=== PATIENT | female | born 1980 | race African-American/Black ===

== ENCOUNTER 2016-10-04 16:56 | Inpatient (IN) | payer OTHER ==
[2016-10-04 17:37] VITALS: BMI 20.9
[2016-10-04] MEDS ORDERED: SODIUM CHLORIDE 1,000 ML IV STA (17:57)
--- NOTE | 2016-10-04 17:58 | PDOC ---
[id number] Illness Timing/Duration: other (this am) Severity: severe Associated Symptoms: reports: weakness. denies: chest pain, cough, fever/chills , headaches, nausea/vomiting, shortness of breath <Davis Fuentes - Last Filed: 10/05/16 09:35> <Ann Marie Red - Last Filed: 10/05/16 13:47> <Viktoria Cash - Last Filed: 10/05/16 21:04> - General Chief Complaint: Weakness Stated Complaint: WEAKNESS Time Seen by Provider: 10/04/16 17:40 Past History - Past Medical History Other medical history: slurred speech episodes. - Reproductive History (#): 5 Para: 2 Therapeutic (s) & number: Yes (2 ABORTIONS) - Immunization History Td Vaccination: No Immunization Up to Date: Yes - Psycho/Social/Smoking Cessation Hx Anxiety: No Suicidal Ideation: No Smoking Status: Yes Smoking History: Never smoked Years of Tobacco Use: 15 Have you smoked in the past 12 months: No Number of Cigarettes Smoked Daily: 7 Cigars Per Day: 0 Information on smoking cessation initiated: No Hx Alcohol Use: No Drug/Substance Use Hx: No Substance Use Type: None <Davis Fuentes - Last Filed: 10/05/16 09:35> <Ann Marie Red - Last Filed: 10/05/16 13:47> <Viktoria Cash - Last Filed: 10/05/16 21:04> - Past Medical History Allergies/Adverse Reactions: Allergies Allergy/AdvReac Type Severity Reaction Status Date / Time No Known Allergies Allergy Verified 10/04/16 17:37 Home Medications: Ambulatory Orders NK [No Known Home Medication] 08/17/14 Review of Systems - Review of Systems Constitutional: Yes: Weakness. No: Chills, Fever HEENTM: No: Blurred Vision Respiratory: No: Cough, Shortness of Breath Cardiac (ROS): No: Chest Pain ABD/GI: No: Constipated, Diarrhea, Nausea, Vomiting, Abdominal cramping : No: Dysuria Neurological: No: Headache, Dizziness <Davis Fuentes Last Filed: 10/05/16 09:35> *Physical Exam - Vital Signs Last Vital Signs Temp Pulse Resp BP Pulse Ox 98.5 F 67 18 140/90 100 10/04/16 16:56 10/04/16 16:56 10/04/16 16:56 10/04/16 16:56 10/04/16 16:56 - Physical Exam General Appearance: Yes: Appropriately Dressed, Other (pt appears lethargic). No: Apparent Distress HEENT: positive: JAMES, Normal Voice. negative: Scleral Icterus (R), Scleral Icterus (L) Neck: positive: Supple. negative: Lymphadenopathy (R), Lymphadenopathy (L) Respiratory/Chest: positive: Lungs Clear, Normal Breath Sounds. negative: Respiratory Distress Cardiovascular: positive: Regular Rate, S1, S2 Gastrointestinal/Abdominal: positive: Soft. negative: Tender Integumentary: positive: Dry, Warm Neurologic: positive: Disoriented. negative: Facial Droop <Davis Fuentes - Last Filed: 10/05/16 09:35> - Vital Signs Last Vital Signs Temp Pulse Resp BP Pulse Ox 98.7 F 90 18 125/84 100 10/05/16 10:25 10/05/16 10:25 10/05/16 10:25 10/05/16 10:25 10/05/16 10:25 <Ann Marie Red - Last Filed: 10/05/16 13:47> - Vital Signs Last Vital Signs Temp Pulse Resp BP Pulse Ox 98.2 F 84 18 127/85 100 10/05/16 18:15 10/05/16 18:15 10/05/16 18:15 10/05/16 18:15 10/05/16 18:15 <Viktoria Cash - Last Filed: 10/05/16 21:04> ED Treatment Course - LABORATORY CBC & Chemistry Diagram: 10/04/16 19:05 10/04/16 19:06 <Davis Fuentes - Last Filed: 10/05/16 09:35> - LABORATORY CBC & Chemistry Diagram: 10/04/16 19:05 10/04/16 19:06 - ADDITIONAL ORDERS Additional order review: 10/04/16 19:05 RBC 5.58 H D MCV 63.1 L MCHC 31.0 L RDW 19.6 H MPV 8.7 D Neutrophils % 80.2 Lymphocytes % 14.3 D Monocytes % 3.9 Eosinophils % 0.2 Basophils % 1.4 D - Medications Given in the ED: ED Medications Discontinued Medications Generic Name Dose Route Start Last Admin Trade Name Freq PRN Reason Stop Dose Admin Sodium Chloride 1,000 mls @ 1,000 mls/hr 10/04/16 17:57 10/04/16 18:14 Normal Saline - IV 10/04/16 18:56 1,000 mls/hr ASDIR STA Administration <Ann Marie Red - Last Filed: 10/05/16 13:47> - LABORATORY CBC & Chemistry Diagram: 10/04/16 19:05 10/04/16 19:06 - ADDITIONAL ORDERS Additional order review: 10/04/16 19:05 RBC 5.58 H D MCV 63.1 L MCHC 31.0 L RDW 19.6 H MPV 8.7 D Neutrophils % 80.2 Lymphocytes % 14.3 D Monocytes % 3.9 Eosinophils % 0.2 Basophils % 1.4 D - Medications Given in the ED: ED Medications Discontinued Medications Generic Name Dose Route Start Last Admin Trade Name Freq PRN Reason Stop Dose Admin Sodium Chloride 1,000 mls @ 1,000 mls/hr 10/04/16 17:57 10/04/16 18:14 Normal Saline - IV 10/04/16 18:56 1,000 mls/hr ASDIR STA Administration Sodium Chloride 1,000 mls @ 250 mls/hr 10/05/16 13:15 10/05/16 13:17 Normal Saline - IV 10/05/16 17:14 250 mls/hr ASDIR ONE Administration <Viktoria Cash - Last Filed: 10/05/16 21:04> Medical Decision Making - Medical Decision Making 10/04/16 17:58 36-year-old female, unclear history at this time, presenting with altered mental status. Patient brought in by mother and son after patient started complaining of weakness today and has since been mostly lethargic and bed bound all day. Patient complaining of generalize weakness since this am, denies headache, dizziness, focal weakness, slurred speech, visual changes, n/v, chest pain, shortness of breath, abdominal pain, change in bowel movements, dysuria, f /c. As per mother, patient presented similarly 5 years ago at [facility] and was admitted to possibly stepdown unit "and send to rehab" per mother. Patient denies any psych history or substance abuse to me now but as per records, patient had multiple encounters in 2012 with psychiatrist at [facility] [place] [facility] See exam AMS Suspect possibly substance abuse/ingestion, less likely CVA, cardiac or infectious Pt lethargic in ED but stable w/ RANDOLPH Oriented x 2 (place/person) Non-focal in ED but unable to follow some commands Rest of exam unremarkable otherwise Pt placed on monitor -ekg -labs including utox -IVF -admission anticipated <Davis Fuentes - Last Filed: 10/05/16 09:35> *DC/Admit/Observation/Transfer <Davis Fuentes - Last Filed: 10/05/16 09:35> - Discharge Dispostion Admit: Yes <Ann Marie Red - Last Filed: 10/05/16 13:47> - Attestations Physician Attestion: I reviewed the case with the mid-level practitioner and agree with the mid- level practitioner's assessment, diagnosis and disposition. <Viktoria Cash - Last Filed: 10/05/16 21:04> Diagnosis at time of Disposition: Dizziness, Ataxia - Referrals
[2016-10-04 19:28] LABS: BASOPHIL 1.4 % (0-2.0); EOSINOPHIL 0.2 % (0-4.5); MEAN CELL VOLUME 63.1 fl (80-96); MEAN PLT VOLUME 8.7 fl (7.5-11.1); NEUTROPHILS 80.2 % (42.8-82.8); PLATELET COUNT 496 K/MM3 (134-434); RDW 19.6 % (11.6-15.6); WHITE BLOOD COUNT 6.4 K/mm3 (4.0-10.0)
[2016-10-04 19:32] LABS: MCH 19.6 pg (25.7-33.7)
[2016-10-04 20:01] LABS: ALBUMIN 4.3 g/dl (3.4-5.0); ANION GAP 10 (8-16); BILIRUBIN,TOTAL 0.2 mg/dL (0.2-1.0); CALCIUM 9.3 mg/dL (8.5-10.1); CO2 26 mmol/L (21-32); CREATININE 0.7 mg/dL (0.55-1.02); GLUCOSE,RANDOM 90 mg/dL (74-106); SGOT/AST 18 U/L (15-37); SGPT/ALT 18 U/L (12-78); TOT PROT 8.8 g/dl (6.4-8.2)
[2016-10-04 20:03] LABS: ALK PHOS 67 U/L (45-117); TROPONIN I < 0.02 ng/ml (0.00-0.05)
[2016-10-04 20:21] LABS: HIV 1 & 2 AB NEGATIVE; HIV 1 AGp24 NEGATIVE
[2016-10-04 20:30] LABS: PLATELET ESTIMATE SLT INCREASED (NORMAL)
[2016-10-04 22:34] LABS: URINE APPEARANCE CLEAR; URINE BILIRUBIN NEGATIVE (NEGATIVE); URINE BLOOD NEGATIVE (NEGATIVE); URINE COLOR STRAW; URINE GLUCOSE (UA) NEGATIVE (NEGATIVE); URINE KETONE NEGATIVE (NEGATIVE); URINE LEUK ESTERASE NEGATIVE (NEGATIVE); URINE NITRITE NEGATIVE (NEGATIVE); URINE PROTEIN NEGATIVE (NEGATIVE); URINE UROBILINOGEN NEGATIVE E.U./dl (0.2-1.0)
[2016-10-04 22:41] LABS: URINE MARIJUANA THC NEGATIVE ng/ml (CUTOFF=50)
--- NOTE | 2016-10-05 08:35 | PDOC ---
ED Treatment Course - LABORATORY CBC & Chemistry Diagram: 10/04/16 19:05 10/04/16 19:06 - ADDITIONAL ORDERS Additional order review: Laboratory Results 10/04/16 10/04/16 18:13 17:10 Urine Color Straw Urine Appearance Clear Urine pH 6.0 Ur Specific [place] 1.012 Urine Protein Negative Urine Glucose (UA) Negative Urine Ketones Negative Urine Blood Negative Urine Nitrite Negative Urine Bilirubin Negative Urine Urobilinogen Negative Ur Leukocyte Esterase Negative Urine HCG, Qual Negative Opiates Screen Negative Methadone Screen Negative Barbiturate Screen Negative Phencyclidine Screen Negative Ur Amphetamines Screen Negative MDMA (Ecstasy) Screen Negative Benzodiazepines Screen Negative Cocaine Screen Positive U Marijuana (THC) Screen Negative 10/04/16 19:05 RBC 5.58 H D MCV 63.1 L MCHC 31.0 L RDW 19.6 H MPV 8.7 D Neutrophils % 80.2 Lymphocytes % 14.3 D Monocytes % 3.9 Eosinophils % 0.2 Basophils % 1.4 D - Medications Given in the ED: ED Medications Discontinued Medications Generic Name Dose Route Start Last Admin Trade Name Freq PRN Reason Stop Dose Admin Sodium Chloride 1,000 mls @ 1,000 mls/hr 10/04/16 17:57 10/04/16 18:14 Normal Saline - IV 10/04/16 18:56 1,000 mls/hr ASDIR STA Administration Progress Note - Progress Note Progress Note: I have received report from LITA Wilson regarding this patient. Pt's initial chief complaint: AMS Pt's work up completed prior to sign out: labs, Head CT, EKG, drug tox Pt treatment given from prior staff: IV fluids Pt plan to be completed: none Dispo: Awaiting reassess and discharge Medical Decision Making - Medical Decision Making A/P: 36 y/o female BIB mother and son for AMS. The patient had a complete work up and was + for cocaine. All other labs and imaging studies were normal. The patient does not want her family to know anything and refuses to answer questions about her cocaine use. She is sleeping in the ER and only responds to painful stimuli. Pt was denied admission to hospitalist and detox will not take cocaine detox. Awaiting an improvement in condition and discharge. Reassessed the patient and attempted to get her to walk. She has to walk with assistance and has ataxia. She can answer my questions and denies everything except cocaine use, which she states was 2 days ago. She is complaining only of dizziness and has slowed speech. Suspect possible hydrocephalus? Will admit for full neuro work up. Called Dr. Garcia, cost control analyst for Dr. Patel. She informs me that Dr. Alexander is admitting for her. I microblogged Dr. Alexander and he accepted the patient to obs and instructed me to put in consult for Dr. Barrientos. *DC/Admit/Observation/Transfer Diagnosis at time of Disposition: Dizziness, Ataxia - Referrals Referrals: Brennan Patel MD [Primary Care Provider] -
[2016-10-05] MEDS ORDERED: SODIUM CHLORIDE 1,000 ML IV ONE (13:15)
--- NOTE | 2016-10-05 14:40 | HP ---
[id number] a 36-year-old woman who was brought in to the ER by family yesterday because of lethargy. She had been complaining of feeling weak. Work-up , including head CT, was unremarkable except for urine drug screen that was positive for cocaine. She is currently very sleepy. She is slow to answer questions. She complains of feeling dizzy and weak. She denies pain, fever, chills, falls, headache, abdominal pain, nausea, cough, shortness of breath, chest pain, diarrhea, constipation, weight change, dysuria, hematuria, leg edema. She denies drug use, but earlier admitted to using cocaine 2 days ago. PAST MEDICAL HISTORY: Denies PAST SURGICAL HISTORY: Denies Allergies No Known Allergies Allergy (Verified 10/04/16 17:37) HOME MEDICATIONS 3 Medication Instructions Recorded NK [No Known Home Medication] 08/17/14 Social History: Smokin cigarettes/day Alcohol: Denies Drugs: Cocaine Recent Travel: No Family History: Non-contributory REVIEW OF SYSTEMS CONSTITUTIONAL: Present: generalized weakness. Absent: fever, chills, diaphoresis, malaise, loss of appetite, weight change HEENT: Absent: rhinorrhea, nasal congestion, throat pain, throat swelling, difficulty swallowing, mouth swelling, ear pain, eye pain, visual changes CARDIOVASCULAR: Present: lightheadedness. Absent: chest pain, syncope, palpitations, peripheral edema RESPIRATORY: Absent: cough, shortness of breath, dyspnea with exertion, orthopnea, wheezing, stridor, hemoptysis GASTROINTESTINAL: Absent: abdominal pain, abdominal distension, nausea, vomiting , diarrhea, constipation, melena, hematochezia GENITOURINARY: Absent: dysuria, frequency, urgency, hesitancy, hematuria, flank pain MUSCULOSKELETAL: Absent: myalgia, arthralgia, joint swelling, back pain, neck pain SKIN: Absent: rash, itching, pallor HEMATOLOGIC/IMMUNOLOGIC: Absent: easy bleeding, easy bruising, lymphadenopathy, frequent infections ENDOCRINE: Absent: unexplained weight gain, unexplained weight loss, heat intolerance, cold intolerance NEUROLOGIC: Present: dizziness, unsteady gait. Absent: headache, focal weakness , paresthesias, seizure, bladder or bowel incontinence PSYCHIATRIC: Absent: anxiety, depression, suicidal or homicidal ideation, hallucinations. PHYSICAL EXAMINATION Vital Signs Period Temp Pulse Resp BP Sys/Montiel Pulse Ox Last 24 Hr 98.5 F-98.7 F 62-90 18-18 125-140/82-90 98-100 GENERAL: Sleepy, arousable, in no acute distress. HEAD: Normal with no signs of trauma. EYES: Pupils equal, round and reactive to light, extraocular movements intact, sclerae anicteric, conjunctivae clear. EARS, NOSE, THROAT: Ears normal, nares patent, oropharynx clear without exudates. Moist mucous membranes. NECK: Normal range of motion, supple without lymphadenopathy, JVD, or masses. LUNGS: Breath sounds equal, clear to auscultation bilaterally. No wheezes, and no crackles. No accessory muscle use. HEART: Regular rate and rhythm, normal S1 and S2 without murmur, rub or gallop. ABDOMEN: Soft, nontender, not distended, normoactive bowel sounds, no guarding, no rebound, no masses. No hepatomegaly or splenomegaly. MUSCULOSKELETAL: Normal range of motion at all joints. No bony deformities or tenderness. No CVA tenderness. UPPER EXTREMITIES: 2+ pulses, warm, well-perfused. No cyanosis. No clubbing. Cap refill <2 seconds. No peripheral edema. LOWER EXTREMITIES: 2+ pulses, warm, well-perfused. No calf tenderness. No peripheral edema. NEUROLOGICAL: Cranial nerves II-XII intact. Speech slow but clear. Gait not observed. DTRs 1+. Strength 4/5 in all extremities. PSYCHIATRIC: Cooperative. Good eye contact. Appropriate mood and affect. SKIN: Warm, dry, normal turgor, no rashes or lesions noted. Laboratory Tests 10/04/16 10/04/16 10/04/16 17:10 18:13 18:13 WBC RBC Hgb Hct MCV MCHC RDW Plt Count MPV Neutrophils % Lymphocytes % Monocytes % Eosinophils % Basophils % Platelet Estimate Hypochromic-Microcytic Anisocytosis Microcytosis Morphology Comment Sodium Potassium Chloride Carbon Dioxide Anion Gap BUN Creatinine Creat Clearance w eGFR Random Glucose Calcium Total Bilirubin AST ALT Alkaline Phosphatase Ammonia 30.66 Creatine Kinase Troponin I Total Protein Albumin Serum , Qual Urine Color Straw Urine Appearance Clear Urine pH 6.0 Ur Specific [place] 1.012 Urine Protein Negative Urine Glucose (UA) Negative Urine Ketones Negative Urine Blood Negative Urine Nitrite Negative Urine Bilirubin Negative Urine Urobilinogen Negative Ur Leukocyte Esterase Negative Urine HCG, Qual Negative Opiates Screen Negative Methadone Screen Negative Barbiturate Screen Negative Phencyclidine Screen Negative Ur Amphetamines Screen Negative MDMA (Ecstasy) Screen Negative Benzodiazepines Screen Negative Cocaine Screen Positive U Marijuana (THC) Screen Negative HIV 1&2 Antibody Screen HIV P24 Antigen 10/04/16 10/04/16 10/04/16 18:13 18:13 19:05 WBC 6.4 D RBC 5.58 H D Hgb 10.9 D Hct 35.2 D MCV 63.1 L MCHC 31.0 L RDW 19.6 H Plt Count 496 H D MPV 8.7 D Neutrophils % 80.2 Lymphocytes % 14.3 D Monocytes % 3.9 Eosinophils % 0.2 Basophils % 1.4 D Platelet Estimate Slt increased Hypochromic-Microcytic 2+ Anisocytosis 1+ Microcytosis 1+ Morphology Comment Slide scanned Sodium Potassium Chloride Carbon Dioxide Anion Gap BUN Creatinine Creat Clearance w eGFR Random Glucose Calcium Total Bilirubin AST ALT Alkaline Phosphatase Ammonia Creatine Kinase Troponin I Total Protein Albumin Serum , Qual Negative Urine Color Urine Appearance Urine pH Ur Specific [place] Urine Protein Urine Glucose (UA) Urine Ketones Urine Blood Urine Nitrite Urine Bilirubin Urine Urobilinogen Ur Leukocyte Esterase Urine HCG, Qual Opiates Screen Methadone Screen Barbiturate Screen Phencyclidine Screen Ur Amphetamines Screen MDMA (Ecstasy) Screen Benzodiazepines Screen Cocaine Screen U Marijuana (THC) Screen HIV 1&2 Antibody Screen Negative HIV P24 Antigen Negative 10/04/16 19:06 WBC RBC Hgb Hct MCV MCHC RDW Plt Count MPV Neutrophils % Lymphocytes % Monocytes % Eosinophils % Basophils % Platelet Estimate Hypochromic-Microcytic Anisocytosis Microcytosis Morphology Comment Sodium 140 Potassium 3.7 Chloride 104 Carbon Dioxide 26 Anion Gap 10 BUN 8 Creatinine 0.7 Creat Clearance w eGFR > 60 Random Glucose 90 Calcium 9.3 Total Bilirubin 0.2 D AST 18 D ALT 18 D Alkaline Phosphatase 67 Ammonia Creatine Kinase 69 Troponin I < 0.02 Total Protein 8.8 H Albumin 4.3 D Serum , Qual Urine Color Urine Appearance Urine pH Ur Specific [place] Urine Protein Urine Glucose (UA) Urine Ketones Urine Blood Urine Nitrite Urine Bilirubin Urine Urobilinogen Ur Leukocyte Esterase Urine HCG, Qual Opiates Screen Methadone Screen Barbiturate Screen Phencyclidine Screen Ur Amphetamines Screen MDMA (Ecstasy) Screen Benzodiazepines Screen Cocaine Screen U Marijuana (THC) Screen HIV 1&2 Antibody Screen HIV P24 Antigen Chest x-ray: No acute process. Head CT: No hemorrhage, mass, infarct. EKG: Sinus rhythm, rate 93, prolonged QT ASSESSMENT/PLAN: This is a 36-year-old woman with no significant past medical history who was brought in to the ER yesterday because family noted her to be lethargic. She complains of dizziness and generalized weakness. She is ataxic. She was found to have a urine drug screen positive for cocaine. She is being placed in observation now for further evaluation and treatment of an emergent condition. 1. Dizziness, ataxia and generalized weakness - Check TSH - Neurology consult - Physical therapy Visit type - Emergency Visit Emergency Visit: Yes ED Registration Date: 10/04/16 Care time: The patient presented to the Emergency Department on the above date and was hospitalized for further evaluation of their emergent condition. - New Patient This patient is new to me today: Yes Date on this admission: 10/05/16 - Critical Care Critical Care patient: No
[2016-10-05] MEDS ORDERED: ACETAMINOPHEN 325 MG TABLET (FP) PO PRN (14:41)
[2016-10-05] MEDS ORDERED: ONDANSETRON 4 MG/2 ML VIAL IVPB PRN (14:41)
--- NOTE | 2016-10-05 16:00 | CON.NEURO ---
Consult Consult Specialty:: [facility] Referred by:: ER - History of Present Illness History of Present Illness: 36-year-old right-handed woman Seen in the emergency room at the request of the emergency room physician Patient presented with weakness patient tested positive for cocaine Patient was noted with increasing difficulty with gait and balance No report of any recent travel patient is a very poor historian and very cooperating with the exam - Past Medical History ...LMP: 04/19/14 - Alcohol/Substance Use Hx Alcohol Use: No - Smoking History Smoking history: Never smoked Have you smoked in the past 12 months: No Aproximately how many cigarettes per day: 7 Home Medications - Allergies Allergies/Adverse Reactions: Allergies Allergy/AdvReac Type Severity Reaction Status Date / Time No Known Allergies Allergy Verified 10/04/16 17:37 - Home Medications Home Medications: Ambulatory Orders NK [No Known Home Medication] 08/17/14 Family Disease History - Family Disease History Family History: Unable to Obtain Review of Systems - Review of Systems Constitutional: reports: No Symptoms Eyes: reports: No Symptoms Physical Exam-Neuro Vital Signs: Vital Signs Temperature 98.2 F 10/05/16 15:27 Pulse Rate 95 H 10/05/16 15:27 Respiratory Rate 18 10/05/16 15:27 Blood Pressure 127/88 10/05/16 15:27 O2 Sat by Pulse Oximetry (%) 100 10/05/16 15:27 - Neuro Exam Level Of Consciousness: Yes: Oriented to Person, Oriented to Place, Oriented to Time Eyes: Yes: PERRLA Speech: WNL Dominant Hand: Left Cranial Nerves II-XII Intact: Yes Gag: Present DTR's: 1+ Left Bicep, 1+ Right Bicep, 1+ Left Achilles, 1+ Right Achilles Response to light touch: Normal Response to pain prick: Normal Motor Strength: 3/5: Left Arm, Right Arm, Left Leg, Right Leg Gait: Deferred Imaging - Results Cat Scan: Image Reviewed Problem List - Problems (1) Ataxia Code(s): R27.0 - ATAXIA, UNSPECIFIED (2) Dizziness Code(s): R42 - DIZZINESS AND GIDDINESS Assessment/Plan weakness in the leg and difficulty walking Neurological examination is limited although does not pinpoint to any acute CHECK OUT CLERK pathology 1. Fall precautions 2. Admit for observation 3. MRI of the brain with no contrast 4. Seizure precautions 45. Physical therapy assessment Thank you for the kind referral
[2016-10-06 08:57] LABS: MCH 20.1 pg (25.7-33.7); MCHC 31.9 g/dl (32.0-36.0); PLATELET COUNT 390 K/MM3 (134-434); RDW 19.7 % (11.6-15.6); WHITE BLOOD COUNT 7.1 K/mm3 (4.0-10.0)
[2016-10-06 10:01] LABS: CREATININE 0.6 mg/dL (0.55-1.02); THYROID STIMULATING HORMONE 0.55 uIU/ml (0.358-3.74)
--- NOTE | 2016-10-06 17:11 | PN ---
Progress Note, Physician History of Present Illness: Patient seen Arousable short attention span No seizure activity No fall I spoke extensively to her mother who lives with her and her brother who lives in [place]. Apparently the patient had a similar event 5 years ago. Patient was admitted to [facility] in [place] and after full investigation. According to the mother. They couldn't figure what's gone on with her. Patient was transferred to [facility] in the [place]. Patient was after that transfer to rehabilitation and was admitted to [facility]! Still there is no definite diagnoses. According to the mother. She spoke to her today on the phone and she knew who she was - Current Medication List Current Medications: Active Medications Acetaminophen (Tylenol -) 650 mg PO Q4H PRN PRN Reason: FEVER OR PAIN Ondansetron HCl (Zofran Injection) 4 mg IVPB Q4H PRN PRN Reason: NAUSEA - Objective Vital Signs: Vital Signs Temperature 98.3 F 10/06/16 14:00 Pulse Rate 114 H 10/06/16 14:00 Respiratory Rate 18 10/06/16 14:00 Blood Pressure 139/79 10/06/16 14:00 O2 Sat by Pulse Oximetry (%) 98 10/06/16 10:22 Constitutional: Yes: Well Nourished Eyes: Yes: WNL HENT: Yes: WNL Neurological: Yes: Alert, Oriented, Babinski negative ...Motor Strength: WNL (very short attention) Labs: CBC, BMP 10/06/16 06:45 10/06/16 06:45 Problem List - Problems (1) Ataxia Code(s): R27.0 - ATAXIA, UNSPECIFIED (2) Dizziness Code(s): R42 - DIZZINESS AND GIDDINESS Assessment/Plan 1. Neuro checks every 2 hours. 2. Repeat MRI of the brain with and without contrast. 3. Will consider spinal tap. 4. Obtain all the records from [facility]. 5. EEG
--- NOTE | 2016-10-06 20:04 | PN ---
Progress Note, Physician History of Present Illness: Pt lethargic and responsive to painful stimuli - Current Medication List Current Medications: Active Medications Acetaminophen (Tylenol -) 650 mg PO Q4H PRN PRN Reason: FEVER OR PAIN Ondansetron HCl (Zofran Injection) 4 mg IVPB Q4H PRN PRN Reason: NAUSEA - Objective Vital Signs: Vital Signs Temperature 98.3 F 10/06/16 14:00 Pulse Rate 114 H 10/06/16 14:00 Respiratory Rate 18 10/06/16 14:00 Blood Pressure 139/79 10/06/16 14:00 O2 Sat by Pulse Oximetry (%) 98 10/06/16 10:22 Neck: Yes: Supple Cardiovascular: Yes: WNL, Regular Rate and Rhythm Respiratory: Yes: WNL, Regular, CTA Bilaterally Gastrointestinal: Yes: WNL, Normal Bowel Sounds, Soft, Abdomen, Obese Edema: No Labs: CBC, BMP 10/06/16 06:45 10/06/16 06:45 Problem List - Problems (1) Altered mental status Assessment/Plan: No clear etioloogy at this time MRI brain unremarkable for acute pthoogy Awaiting EEG As per Neuro May need LP Code(s): R41.82 - ALTERED MENTAL STATUS, UNSPECIFIED
[2016-10-06] MEDS: DEXTROSE 5%-0.45% SALINE 1,000 ML IV SCH (21:00)
[2016-10-06] MEDS: HEPARIN NA (PORCINE) 5,000 UNITS/ML 1ML VIAL SQ SCH (21:26)
--- NOTE | 2016-10-06 23:42 | EKG ---
Test Reason : Blood Pressure : / mmHG Vent. Rate : 090 BPM Atrial Rate : 090 BPM P-R Int : 110 ms QRS Dur : 088 ms QT Int : 358 ms P-R-T Axes : 054 075 003 degrees QTc Int : 437 ms SINUS RHYTHM WITH SHORT [place] NONSPECIFIC T WAVE ABNORMALITY ABNORMAL ECG WHEN COMPARED WITH ECG OF 04-OCT-2016 17:10, T WAVE VARIATION Confirmed by ALLI JONES MD ([id number]) on 10/06/2016 11:42:13 PM Referred By: Confirmed By:ALLI JONES MD
[2016-10-07 07:23] LABS: BASOPHIL 0.9 % (0-2.0); MCHC 31.5 g/dl (32.0-36.0); MEAN CELL VOLUME 63.6 fl (80-96); MEAN PLT VOLUME 8.4 fl (7.5-11.1); NEUTROPHILS 65.8 % (42.8-82.8); PLATELET COUNT 371 K/MM3 (134-434); RDW 19.5 % (11.6-15.6); WHITE BLOOD COUNT 6.9 K/mm3 (4.0-10.0)
[2016-10-07 07:49] LABS: ALBUMIN 3.5 g/dl (3.4-5.0); ALK PHOS 49 U/L (45-117); ANION GAP 9 (8-16); BILIRUBIN,TOTAL 0.2 mg/dL (0.2-1.0); CALCIUM 9.1 mg/dL (8.5-10.1); CO2 25 mmol/L (21-32); CREATININE 0.6 mg/dL (0.55-1.02); GLUCOSE,RANDOM 87 mg/dL (74-106); SGOT/AST 14 U/L (15-37); SGPT/ALT 13 U/L (12-78); TOT PROT 7.1 g/dl (6.4-8.2)
[2016-10-07] MEDS: HEPARIN NA (PORCINE) 5,000 UNITS/ML 1ML VIAL SQ SCH ×2 (09:12→21:30)
[2016-10-07 09:15] LABS: ANISOCYTOSIS 1+; HYPOCHROMIA 2+; MICROCYTOSIS 1+
[2016-10-07 11:09] LABS: THYROID STIMULATING HORMONE 0.42 uIU/ml (0.358-3.74)
[2016-10-07] MEDS ORDERED: PT OWN MED DRAWER 7, Y5N ONE (11:17)
--- NOTE | 2016-10-07 12:45 | EKG ---
Test Reason : Blood Pressure : / mmHG Vent. Rate : 093 BPM Atrial Rate : 093 BPM P-R Int : 116 ms QRS Dur : 104 ms QT Int : 372 ms P-R-T Axes : 063 074 005 degrees QTc Int : 462 ms NORMAL SINUS RHYTHM T WAVE ABNORMALITY, CONSIDER INFERIOR ISCHEMIA PROLONGED QT ABNORMAL ECG NO PREVIOUS ECGS AVAILABLE Confirmed by ALLI JONES MD ([id number]) on 10/07/2016 12:44:48 PM Referred By: Confirmed By:ALLI JONES MD
--- NOTE | 2016-10-07 12:53 | PN ---
Progress Note, Physician Chief Complaint: Weakness and confusion History of Present Illness: 36-year-old woman who was brought in to the ER by family yesterday because of lethargy. She had been complaining of feeling weak. Work-up, including head CT, was unremarkable except for urine drug screen that was positive for cocaine. Yesterday was seen by Dr Christy for confusion. MRI brain without contrast completed showed ?demyelinating disease. Patient's mother is at bedside. As per mother, her daughter had a similar episode at an outside hospital for which she had extensive workup including MRI brain, LP, all which were unremarkable. Overall appears slow but some slight improvement since Friday. - Current Medication List Current Medications: Active Medications Acetaminophen (Tylenol -) 650 mg PO Q4H PRN PRN Reason: FEVER OR PAIN Heparin Sodium (Porcine) (Heparin -) 5,000 unit SQ BID [facility] Last Admin: 10/07/16 09:12 Dose: 5,000 unit Dextrose/Sodium Chloride (D5-1/2ns -) 1,000 mls @ 75 mls/hr IV ASDIR [facility] Last Admin: 10/06/16 21:00 Dose: 75 mls/hr Ondansetron HCl (Zofran Injection) 4 mg IVPB Q4H PRN PRN Reason: NAUSEA - Objective Vital Signs: Vital Signs Temperature 98 F 10/07/16 05:17 Pulse Rate 82 10/07/16 05:17 Respiratory Rate 18 10/07/16 05:17 Blood Pressure 134/80 10/07/16 05:17 O2 Sat by Pulse Oximetry (%) 98 10/06/16 10:22 Constitutional: Yes: Well Nourished Eyes: Yes: WNL HENT: Yes: Atraumatic, Normocephalic Cardiovascular: Yes: S1, S2 Respiratory: Yes: Regular Neurological: Yes: Alert, Oriented, Cran Nerves II-XII Intact, Other (MS awake, alert, oriented, but slow to respond CNII-XII intact Motor no obvious focality, her weakness appears to be effort related at times Sensory intact) Labs: CBC, BMP 10/07/16 06:00 10/07/16 06:00 Assessment/Plan 36-year-old woman who was brought in to the ER by family yesterday because of lethargy. She had been complaining of feeling weak. Work-up, including head CT, was unremarkable except for urine drug screen that was positive for cocaine. Yesterday was seen by Dr Christy for confusion. MRI brain without contrast completed showed ?demyelinating disease. Patient's mother is at bedside. As per mother, her daughter had a similar episode at an outside hospital for which she had extensive workup including MRI brain, LP, all which were unremarkable. Overall appears slow but some slight improvement since Friday. Exam- patient awake, alert, slow to respond. Motor strength fluctuates and seems to be effort related at times Recommend MRI brain with and without contrast report pending EEG Recommend psychiatry evaluation Physical therapy Will continue to follow
[2016-10-07] MEDS: DEXTROSE 5%-0.45% SALINE 1,000 ML IV SCH (18:09)
--- NOTE | 2016-10-07 21:42 | PN ---
Progress Note, Physician History of Present Illness: Pt lethargic - Current Medication List Current Medications: Active Medications Acetaminophen (Tylenol -) 650 mg PO Q4H PRN PRN Reason: FEVER OR PAIN Heparin Sodium (Porcine) (Heparin -) 5,000 unit SQ BID [facility] Last Admin: 10/07/16 21:30 Dose: 5,000 unit Dextrose/Sodium Chloride (D5-1/2ns -) 1,000 mls @ 75 mls/hr IV ASDIR [facility] Last Admin: 10/07/16 18:09 Dose: 75 mls/hr Ondansetron HCl (Zofran Injection) 4 mg IVPB Q4H PRN PRN Reason: NAUSEA - Objective Vital Signs: Vital Signs Temperature 98.6 F 10/07/16 18:05 Pulse Rate 94 H 10/07/16 18:05 Respiratory Rate 18 10/07/16 18:05 Blood Pressure 135/85 10/07/16 18:05 O2 Sat by Pulse Oximetry (%) 98 10/07/16 20:19 Constitutional: Yes: Well Nourished Neck: Yes: Supple Cardiovascular: Yes: WNL, Regular Rate and Rhythm Respiratory: Yes: WNL, Regular, CTA Bilaterally Gastrointestinal: Yes: WNL, Normal Bowel Sounds, Soft Labs: CBC, BMP 10/07/16 06:00 10/07/16 06:00 Problem List - Problems (1) Altered mental status Assessment/Plan: No clear etioloogy at this time MRI brain unremarkable for acute pthoogy Awaiting EEG As per Neuro Psych consult Code(s): R41.82 - ALTERED MENTAL STATUS, UNSPECIFIED
[2016-10-08] MEDS: HEPARIN NA (PORCINE) 5,000 UNITS/ML 1ML VIAL SQ SCH ×2 (10:18→21:46)
[2016-10-08] MEDS: DEXTROSE 5%-0.45% SALINE 1,000 ML IV SCH (10:23)
--- NOTE | 2016-10-08 14:38 | PN ---
Progress Note, Physician Chief Complaint: Weakness and confusion History of Present Illness: 36-year-old woman who was brought in to the ER by family yesterday because of lethargy. She had been complaining of feeling weak. Work-up, including head CT, was unremarkable except for urine drug screen that was positive for cocaine. Yesterday was seen by Dr Christy for confusion. MRI brain without contrast completed showed ?demyelinating disease. Patient's mother is at bedside. As per mother, her daughter had a similar episode at an outside hospital for which she had extensive workup including MRI brain, LP, all which were unremarkable. Appears sleepy this morning. MRI brain with contrast- no abnormal enhancement EEG diffuse slowing - Current Medication List Current Medications: Active Medications Acetaminophen (Tylenol -) 650 mg PO Q4H PRN PRN Reason: FEVER OR PAIN Heparin Sodium (Porcine) (Heparin -) 5,000 unit SQ BID [facility] Last Admin: 10/08/16 10:18 Dose: 5,000 unit Dextrose/Sodium Chloride (D5-1/2ns -) 1,000 mls @ 75 mls/hr IV ASDIR [facility] Last Admin: 10/08/16 10:23 Dose: 75 mls/hr Ondansetron HCl (Zofran Injection) 4 mg IVPB Q4H PRN PRN Reason: NAUSEA - Objective Vital Signs: Vital Signs Temperature 97.8 F 10/08/16 10:00 Pulse Rate 92 H 10/08/16 10:00 Respiratory Rate 18 10/08/16 10:00 Blood Pressure 124/82 10/08/16 10:00 O2 Sat by Pulse Oximetry (%) 99 10/08/16 09:00 Constitutional: Yes: No Distress Eyes: Yes: EOM Intact HENT: Yes: Atraumatic, Normocephalic Neurological: Yes: Other (MS: opens eyes to verbal stimuli, follows simple commands EOMI, blinks to visual threat, face symmetric Moves all extremities spontaneously) Labs: CBC, BMP 10/07/16 06:00 10/07/16 06:00 Assessment/Plan 36-year-old woman who was brought in to the ER by family yesterday because of lethargy. She had been complaining of feeling weak. Work-up, including head CT, was unremarkable except for urine drug screen that was positive for cocaine. Yesterday was seen by Dr Christy for confusion. MRI brain without contrast completed showed ?demyelinating disease. MRI brain with contrast no enhancement, unlikely demyelinating disease EEG diffuse slowing Recommend psychiatry evaluation As all workup so far negative, considering LP. Called mother no picker packer to discuss as patient may not be able to consent. Will follow
--- NOTE | 2016-10-08 17:46 | CON.PSY ---
Psychiatry Consult Chief Complaint: I am ok, I don't have any psych problems. Symptoms: reports: Impaired Concentration, Decreased Motivation, Memory Impairment - Previous Psychiatric Treatment Outpatient: None Inpatient: None - Previous Substance Abuse Treatment Outpatient: None Inpatient: None - Family History Family History: Unable to Obtain - Current Medications Current Medications: Active Medications Acetaminophen (Tylenol -) 650 mg PO Q4H PRN PRN Reason: FEVER OR PAIN Heparin Sodium (Porcine) (Heparin -) 5,000 unit SQ BID [facility] Last Admin: 10/08/16 10:18 Dose: 5,000 unit Dextrose/Sodium Chloride (D5-1/2ns -) 1,000 mls @ 75 mls/hr IV [facility] Last Admin: 10/08/16 10:23 Dose: 75 mls/hr Ondansetron HCl (Zofran Injection) 4 mg IVPB Q4H PRN PRN Reason: NAUSEA - Allergies Allergies: Allergies Allergy/AdvReac Type Severity Reaction Status Date / Time No Known Allergies Allergy Verified 10/04/16 17:37 - Current Living Status Usual Living Arrangement: With Parent - Current Mental Status Evaluation Appearance: Disheveled Attitude: Guarded - Affect Affect: Constrictive Appropriateness: Not Appropriate - Mood Mood: Irritable - Speech/Language Expressive: Delayed - Psychomotor Activity Psychomotor Activity: Slowed - Thought Process Thought Process: Circumstantial - Thought Content Hallucinations: Absent Delusions: Absent - Self Perception Self Perception: No Impairment - Cognition Attention: Alert Orientation: Time, Person Memory, Immediate Recall: Impaired Memory, Short Term: 1/3 Memory, Remote with Promptin/3 - Concentration Serial Sevens Intact: No Simple Calculations Intact: No - Abstraction Proverb Interpretation: Impaired Judgement: Minimally Impaired - Insight Insight: Impaired - Impulse Control Impulse Control: Minimally Impaired - Suicidal Ideation Suicidal Ideation: No - Homicidal Ideation Homicidal Ideation: No Assessment/Plan Do not recemmend any any psych meds at this time.
--- NOTE | 2016-10-08 20:26 | PN ---
Progress Note, Physician History of Present Illness: Pt keeping her eyes closed and states that she does not want to talk - Current Medication List Current Medications: Active Medications Acetaminophen (Tylenol -) 650 mg PO Q4H PRN PRN Reason: FEVER OR PAIN Heparin Sodium (Porcine) (Heparin -) 5,000 unit SQ BID [facility] Last Admin: 10/08/16 10:18 Dose: 5,000 unit Dextrose/Sodium Chloride (D5-1/2ns -) 1,000 mls @ 75 mls/hr IV ASDIR [facility] Last Admin: 10/08/16 10:23 Dose: 75 mls/hr Ondansetron HCl (Zofran Injection) 4 mg IVPB Q4H PRN PRN Reason: NAUSEA - Objective Vital Signs: Vital Signs Temperature 98.3 F 10/08/16 17:20 Pulse Rate 108 H 10/08/16 17:20 Respiratory Rate 20 10/08/16 17:20 Blood Pressure 125/67 10/08/16 17:20 O2 Sat by Pulse Oximetry (%) 99 10/08/16 09:00 Constitutional: Yes: No Distress Neck: Yes: Supple Cardiovascular: Yes: WNL, Regular Rate and Rhythm Respiratory: Yes: WNL, Regular, CTA Bilaterally Gastrointestinal: Yes: WNL, Normal Bowel Sounds, Soft Labs: CBC, BMP 10/07/16 06:00 10/07/16 06:00 Problem List - Problems (1) Altered mental status Assessment/Plan: No clear etioloogy at this time MRI brain unremarkable for acute pathology Neuro consult appreciated and spoke at length about possibility of LP due to unknown etiology Psych consult noted Will need to speak to pt about STR placement if no improvement Code(s): R41.82 - ALTERED MENTAL STATUS, UNSPECIFIED
[2016-10-09] MEDS: DEXTROSE 5%-0.45% SALINE 1,000 ML IV SCH ×3 (07:12→21:24)
[2016-10-09] MEDS: HEPARIN NA (PORCINE) 5,000 UNITS/ML 1ML VIAL SQ SCH (09:45)
--- NOTE | 2016-10-09 11:59 | PN ---
Progress Note, Physician Chief Complaint: Weakness and confusion History of Present Illness: 36-year-old woman who was brought in to the ER by family yesterday because of lethargy. She had been complaining of feeling weak. Work-up, including head CT, was unremarkable except for urine drug screen that was positive for cocaine. Yesterday was seen by Dr Christy for confusion. MRI brain without contrast completed showed ?demyelinating disease. As per mother, her daughter had a similar episode at an outside hospital for which she had extensive workup including MRI brain, LP, all which were unremarkable. Appears more alert and awake this morning MRI brain with contrast- supratentorial changes could be related to toxic metabolic encephalopathy, no abnormal enhancement EEG diffuse slowing - Current Medication List Current Medications: Active Medications Acetaminophen (Tylenol -) 650 mg PO Q4H PRN PRN Reason: FEVER OR PAIN Dextrose/Sodium Chloride (D5-1/2ns -) 1,000 mls @ 75 mls/hr IV [facility] Last Admin: 10/09/16 07:12 Dose: 75 mls/hr Ondansetron HCl (Zofran Injection) 4 mg IVPB Q4H PRN PRN Reason: NAUSEA - Objective Vital Signs: Vital Signs Temperature 98.5 F 10/09/16 05:44 Pulse Rate 90 10/09/16 05:44 Respiratory Rate 20 10/09/16 05:44 Blood Pressure 132/83 10/09/16 05:44 O2 Sat by Pulse Oximetry (%) 99 10/08/16 21:00 Constitutional: Yes: No Distress Eyes: Yes: EOM Intact HENT: Yes: Atraumatic, Normocephalic Cardiovascular: Yes: S1, S2 Respiratory: Yes: Regular Neurological: Yes: Alert (knows name, month, and place, not oriented to year), Cran Nerves II-XII Intact ...Motor Strength: WNL Labs: CBC, BMP 10/07/16 06:00 10/07/16 06:00 Assessment/Plan 36-year-old woman who was brought in to the ER by family yesterday because of lethargy. She had been complaining of feeling weak. Work-up, including head CT, was unremarkable except for urine drug screen that was positive for cocaine. MRI brain without contrast completed showed supratentorial changes possibly consistent with metabolic encephalopathy. MRI with contrast shows no enhancement , making demyelinating disease less likely EEG shows no seizure, slowing Symptomatically noted some improvement today. Appreciate psych input given it appears there is some functional overlay to her exam. Spoke at length with mother about needing to pursue LP to rule out encephalitis given all workup has been unrevealing- she would prefer LP under IR given patient has had them in the past and difficult at bedside. Spoke to radiology attending with plan for LP under IR tomorrow. Orders placed, please hold heparin evening and tomorrow am dose for LP.
[2016-10-09 12:19] LABS: INR 1.15 (0.82-1.09); PROTHROMBIN TIME (PATIENT) 12.7 SEC (9.98-11.88)
--- NOTE | 2016-10-09 23:08 | PN ---
Progress Note, Physician History of Present Illness: Pt is awake but w/ odd affect Pt had 1-2 episodes of vomiting - Current Medication List Current Medications: Active Medications Acetaminophen (Tylenol -) 650 mg PO Q4H PRN PRN Reason: FEVER OR PAIN Dextrose/Sodium Chloride (D5-1/2ns -) 1,000 mls @ 75 mls/hr IV [facility] Last Admin: 10/09/16 21:24 Dose: 75 mls/hr Ondansetron HCl (Zofran Injection) 4 mg IVPB Q4H PRN PRN Reason: NAUSEA Last Admin: 10/09/16 19:44 Dose: 4 mg - Objective Vital Signs: Vital Signs Temperature 98.3 F 10/09/16 16:45 Pulse Rate 106 H 10/09/16 16:45 Respiratory Rate 20 10/09/16 16:45 Blood Pressure 132/67 10/09/16 16:45 O2 Sat by Pulse Oximetry (%) 99 10/09/16 09:00 Neck: Yes: Supple Cardiovascular: Yes: WNL, Regular Rate and Rhythm Respiratory: Yes: WNL, Regular, CTA Bilaterally Gastrointestinal: Yes: WNL, Normal Bowel Sounds, Soft Neurological: Yes: Other (Nonfocal) Labs: CBC, BMP 10/07/16 06:00 10/07/16 06:00 INR, PTT INR 1.15 (0.82-1.09) H 10/09/16 11:44 Problem List - Problems (1) Altered mental status Assessment/Plan: No clear etioloogy at this time MRI brain unremarkable for acute pathology Pt to have LP in am w/ IR Code(s): R41.82 - ALTERED MENTAL STATUS, UNSPECIFIED Assessment/Plan 1. Vomiting Check ct scan abd/pelvis Zofran prn
[2016-10-10] MEDS ORDERED: ONDANSETRON 4 MG/2 ML VIAL IVPB PRN (00:12)
[2016-10-10 09:06] LABS: ALBUMIN 3.4 g/dl (3.4-5.0); ALK PHOS 49 U/L (45-117); ANION GAP 11 (8-16); BILIRUBIN,TOTAL 0.3 mg/dL (0.2-1.0); CALCIUM 9.4 mg/dL (8.5-10.1); CO2 25 mmol/L (21-32); CREATININE 0.6 mg/dL (0.55-1.02); GLUCOSE,RANDOM 72 mg/dL (74-106); SGOT/AST 15 U/L (15-37); SGPT/ALT 15 U/L (12-78); TOT PROT 6.9 g/dl (6.4-8.2)
--- NOTE | 2016-10-10 11:03 | PN ---
Progress Note, Physician Chief Complaint: Weakness and confusion History of Present Illness: 36-year-old woman who was brought in to the ER by family yesterday because of lethargy. She had been complaining of feeling weak. Work-up, including head CT, was unremarkable except for urine drug screen that was positive for cocaine. Yesterday was seen by Dr Christy for confusion. MRI brain without contrast completed showed ?demyelinating disease. As per mother, her daughter had a similar episode at an outside hospital for which she had extensive workup including MRI brain, LP, all which were unremarkable. Sleepy, en route to LP MRI brain with contrast- supratentorial changes could be related to toxic metabolic encephalopathy, no abnormal enhancement EEG diffuse slowing - Current Medication List Current Medications: Active Medications Acetaminophen (Tylenol -) 650 mg PO Q4H PRN PRN Reason: FEVER OR PAIN Dextrose/Sodium Chloride (D5-1/2ns -) 1,000 mls @ 75 mls/hr IV [facility] Last Admin: 10/09/16 21:24 Dose: 75 mls/hr Ondansetron HCl (Zofran Injection) 4 mg IVPB Q4H PRN PRN Reason: NAUSEA Last Admin: 10/09/16 19:44 Dose: 4 mg Ondansetron HCl (Zofran Injection) 4 mg IVPB Q6H PRN PRN Reason: NAUSEA - Objective Vital Signs: Vital Signs Temperature 98.2 F 10/10/16 06:00 Pulse Rate 93 H 10/10/16 06:00 Respiratory Rate 18 10/10/16 06:00 Blood Pressure 135/82 10/10/16 06:00 O2 Sat by Pulse Oximetry (%) 99 10/09/16 21:00 Constitutional: Yes: No Distress Eyes: Yes: EOM Intact HENT: Yes: Atraumatic, Normocephalic Extremities: Yes: WNL Neurological: Yes: Other (Opens eyes to verbal stimuli, appears sedated Exam limited, patient en route to LP Moving all extremities spontaneously) Labs: CBC, BMP 10/10/16 06:15 INR, PTT INR 1.15 (0.82-1.09) H 10/09/16 11:44 Problem List - Problems (1) Altered mental status Code(s): R41.82 - ALTERED MENTAL STATUS, UNSPECIFIED Assessment/Plan 36-year-old woman who was brought in to the ER by family yesterday because of lethargy. She had been complaining of feeling weak. Work-up, including head CT, was unremarkable except for urine drug screen that was positive for cocaine. MRI brain without contrast completed showed supratentorial changes possibly consistent with metabolic encephalopathy. MRI with contrast shows no enhancement , making demyelinating disease less likely EEG shows no seizure, slowing Appreciate psych input given it appears there is some functional overlay to her exam. No obvious lab abnormalities (+cocaine), RPR and HIV - Plan for LP under IR today
[2016-10-10 13:01] LABS: CSF APPEARANCE CLEAR; CSF COLOR COLORLESS; CSF RBC 15 /mm3
[2016-10-10 14:02] LABS: BASOPHIL 1.5 % (0-2.0); EOSINOPHIL 2.2 % (0-4.5); MCH 20.2 pg (25.7-33.7); MCHC 31.6 g/dl (32.0-36.0); MEAN CELL VOLUME 63.9 fl (80-96); MEAN PLT VOLUME 9.1 fl (7.5-11.1); NEUTROPHILS 54.8 % (42.8-82.8); PLATELET COUNT 381 K/MM3 (134-434); RDW 19.9 % (11.6-15.6)
[2016-10-10 14:39] LABS: ANISOCYTOSIS 2+; FRAGMENTED CELL FEW; HYPOCHROMIA 3+; MICROCYTOSIS 2+; PLATELET ESTIMATE ADEQUATE (NORMAL); POLYCHROMASIA FEW
[2016-10-10 14:40] LABS: TARGET CELLS FEW
[2016-10-10 15:01] LABS: GLUCOSE,CSF 59 mg/dL (50-80)
[2016-10-10] MEDS: DEXTROSE 5%-0.45% SALINE 1,000 ML IV SCH (21:05)
--- NOTE | 2016-10-10 23:19 | PN ---
Progress Note, Physician - Current Medication List Current Medications: Active Medications Acetaminophen (Tylenol -) 650 mg PO Q4H PRN PRN Reason: FEVER OR PAIN Dextrose/Sodium Chloride (D5-1/2ns -) 1,000 mls @ 75 mls/hr IV [facility] Last Admin: 10/09/16 21:24 Dose: 75 mls/hr Ondansetron HCl (Zofran Injection) 4 mg IVPB Q4H PRN PRN Reason: NAUSEA Last Admin: 10/09/16 19:44 Dose: 4 mg Ondansetron HCl (Zofran Injection) 4 mg IVPB Q6H PRN PRN Reason: NAUSEA - Objective Vital Signs: Vital Signs Temperature 99 F 10/10/16 17:08 Pulse Rate 107 H 10/10/16 17:08 Respiratory Rate 20 10/10/16 17:08 Blood Pressure 119/88 10/10/16 17:08 O2 Sat by Pulse Oximetry (%) 99 10/10/16 09:00 Labs: CBC, BMP 10/10/16 06:15 10/10/16 06:15 INR, PTT INR 1.15 (0.82-1.09) H 10/09/16 11:44 Problem List - Problems (1) Altered mental status Code(s): R41.82 - ALTERED MENTAL STATUS, UNSPECIFIED
[2016-10-11] MEDS: DEXTROSE 5%-0.45% SALINE 1,000 ML IV SCH ×3 (01:05→22:36)
[2016-10-11] MEDS: HEPARIN NA (PORCINE) 5,000 UNITS/ML 1ML VIAL SQ SCH ×2 (09:31→22:36)
--- NOTE | 2016-10-11 14:56 | PN ---
Progress Note, Physician Chief Complaint: Weakness and confusion History of Present Illness: 36-year-old woman who was brought in to the ER by family yesterday because of lethargy. She had been complaining of feeling weak. Work-up, including head CT, was unremarkable except for urine drug screen that was positive for cocaine. Yesterday was seen by Dr Christy for confusion. MRI brain without contrast completed showed ?demyelinating disease. As per mother, her daughter had a similar episode at an outside hospital for which she had extensive workup including MRI brain, LP, all which were unremarkable. MRI brain with contrast- supratentorial changes could be related to toxic metabolic encephalopathy, no abnormal enhancement EEG diffuse slowing LP- wbc 2, rbc 15, glu 59, protein 22 - Current Medication List Current Medications: Active Medications Acetaminophen (Tylenol -) 650 mg PO Q4H PRN PRN Reason: FEVER OR PAIN Heparin Sodium (Porcine) (Heparin -) 5,000 unit SQ BID [facility] Last Admin: 10/11/16 09:31 Dose: 5,000 unit Dextrose/Sodium Chloride (D5-1/2ns -) 1,000 mls @ 75 mls/hr IV ASDIR [facility] Last Admin: 10/11/16 14:10 Dose: 75 mls/hr Ondansetron HCl (Zofran Injection) 4 mg IVPB Q4H PRN PRN Reason: NAUSEA Last Admin: 10/09/16 19:44 Dose: 4 mg Ondansetron HCl (Zofran Injection) 4 mg IVPB Q6H PRN PRN Reason: NAUSEA - Objective Vital Signs: Vital Signs Temperature 98.0 F 10/11/16 14:02 Pulse Rate 95 H 10/11/16 14:02 Respiratory Rate 16 10/11/16 14:02 Blood Pressure 116/92 10/11/16 14:02 O2 Sat by Pulse Oximetry (%) 99 10/11/16 09:00 Constitutional: Yes: No Distress, Calm Eyes: Yes: EOM Intact HENT: Yes: Atraumatic, Normocephalic Neurological: Yes: Cran Nerves II-XII Intact, Other (sleepy, knows name and age moving all ext spontaneously) ...Motor Strength: WNL Labs: CBC, BMP 10/10/16 06:15 10/10/16 06:15 INR, PTT INR 1.15 (0.82-1.09) H 10/09/16 11:44 Problem List - Problems (1) Altered mental status Code(s): R41.82 - ALTERED MENTAL STATUS, UNSPECIFIED Assessment/Plan 36-year-old woman who was brought in to the ER by family yesterday because of lethargy. She had been complaining of feeling weak. Work-up, including head CT, was unremarkable except for urine drug screen that was positive for cocaine. MRI brain without contrast completed showed supratentorial changes possibly consistent with metabolic encephalopathy. MRI with contrast shows no enhancement , making demyelinating disease less likely EEG shows no seizure, slowing Appreciate psych input given it appears there is some functional overlay to her exam. No obvious lab abnormalities (+cocaine), RPR and HIV - LP- wbc 2, rbc 15, glu 59, protein 22 Recommend No obvious source for symptoms Viral PCRs pending PT Supportive care
--- NOTE | 2016-10-11 22:33 | PN ---
Progress Note, Physician - Current Medication List Current Medications: Active Medications Acetaminophen (Tylenol -) 650 mg PO Q4H PRN PRN Reason: FEVER OR PAIN Heparin Sodium (Porcine) (Heparin -) 5,000 unit SQ BID [facility] Last Admin: 10/11/16 09:31 Dose: 5,000 unit Dextrose/Sodium Chloride (D5-1/2ns -) 1,000 mls @ 75 mls/hr IV ASDIR [facility] Last Admin: 10/11/16 14:10 Dose: 75 mls/hr Ondansetron HCl (Zofran Injection) 4 mg IVPB Q4H PRN PRN Reason: NAUSEA Last Admin: 10/09/16 19:44 Dose: 4 mg Ondansetron HCl (Zofran Injection) 4 mg IVPB Q6H PRN PRN Reason: NAUSEA - Objective Vital Signs: Vital Signs Temperature 98.8 F 10/11/16 16:52 Pulse Rate 107 H 10/11/16 16:52 Respiratory Rate 20 10/11/16 16:52 Blood Pressure 126/75 10/11/16 16:52 O2 Sat by Pulse Oximetry (%) 99 10/11/16 09:00 Labs: CBC, BMP 10/10/16 06:15 10/10/16 06:15 INR, PTT INR 1.15 (0.82-1.09) H 10/09/16 11:44 Problem List - Problems (1) Altered mental status Code(s): R41.82 - ALTERED MENTAL STATUS, UNSPECIFIED
[2016-10-12] MEDS: DEXTROSE 5%-0.45% SALINE 1,000 ML IV SCH ×2 (06:49→21:19)
[2016-10-12] MEDS: HEPARIN NA (PORCINE) 5,000 UNITS/ML 1ML VIAL SQ SCH ×2 (09:37→21:19)
--- NOTE | 2016-10-12 12:42 | PN ---
Progress Note, Physician Chief Complaint: Weakness and confusion History of Present Illness: 36-year-old woman who was brought in to the ER by family yesterday because of lethargy. She had been complaining of feeling weak. Work-up, including head CT, was unremarkable except for urine drug screen that was positive for cocaine. Yesterday was seen by Dr Christy for confusion. MRI brain without contrast completed showed ?demyelinating disease. As per mother, her daughter had a similar episode at an outside hospital for which she had extensive workup including MRI brain, LP, all which were unremarkable. MRI brain with contrast- supratentorial changes could be related to toxic metabolic encephalopathy, no abnormal enhancement EEG diffuse slowing LP- wbc 2, rbc 15, glu 59, protein 22 10/12 Viral studies pending No change in todays exam - Current Medication List Current Medications: Active Medications Acetaminophen (Tylenol -) 650 mg PO Q4H PRN PRN Reason: FEVER OR PAIN Heparin Sodium (Porcine) (Heparin -) 5,000 unit SQ BID [facility] Last Admin: 10/12/16 09:37 Dose: 5,000 unit Dextrose/Sodium Chloride (D5-1/2ns -) 1,000 mls @ 75 mls/hr IV ASDIR ELROY Last Admin: 10/12/16 06:49 Dose: 75 mls/hr Ondansetron HCl (Zofran Injection) 4 mg IVPB Q4H PRN PRN Reason: NAUSEA Last Admin: 10/09/16 19:44 Dose: 4 mg Ondansetron HCl (Zofran Injection) 4 mg IVPB Q6H PRN PRN Reason: NAUSEA - Objective Vital Signs: Vital Signs Temperature 98.2 F 10/12/16 08:26 Pulse Rate 89 10/12/16 08:26 Respiratory Rate 16 10/12/16 09:00 Blood Pressure 125/86 10/12/16 08:26 O2 Sat by Pulse Oximetry (%) 99 10/12/16 09:00 Constitutional: Yes: No Distress, Calm Eyes: Yes: Conjunctiva Clear, EOM Intact HENT: Yes: Atraumatic, Normocephalic Cardiovascular: Yes: S1, S2 Respiratory: Yes: Regular Neurological: Yes: Alert, Cran Nerves II-XII Intact ...Motor Strength: WNL (slowed speech, knows name, age, place) Labs: CBC, BMP 10/10/16 06:15 10/10/16 06:15 INR, PTT INR 1.15 (0.82-1.09) H 10/09/16 11:44 Problem List - Problems (1) Altered mental status Code(s): R41.82 - ALTERED MENTAL STATUS, UNSPECIFIED Assessment/Plan 36-year-old woman with lethargy. Urine drug screen that was positive for cocaine. MRI brain without contrast completed showed supratentorial changes possibly consistent with metabolic encephalopathy. MRI with contrast shows no enhancement , making demyelinating disease less likely EEG shows no seizure, slowing Appreciate psych input given it appears there is some functional overlay to her exam. No obvious lab abnormalities (+cocaine), RPR and HIV - LP- wbc 2, rbc 15, glu 59, protein 22 Recommend No obvious source for symptoms despite extensive workup, patients exam appears to be stable Viral PCRs pending, oligoclonal bands pending Physical therapy
--- NOTE | 2016-10-12 15:43 | PN ---
Progress Note (short form) - Note Progress Note: Medical coverage for Dr. Garcia Subjective: The patient was seen and examined at the bedside. She is sleeping but arousable to loud verbal stimuli and painful stimuli. She is moving all extremities. She gives one word answers and then falls back to sleep. Current Medications Generic Name Dose Route Start Last Admin Trade Name Freq PRN Reason Stop Dose Admin Acetaminophen 650 mg 10/05/16 14:41 Tylenol - PO Q4H PRN FEVER OR PAIN Heparin Sodium (Porcine) 5,000 unit 10/11/16 10:00 10/12/16 09:37 Heparin - SQ 5,000 unit BID ELROY Administration Dextrose/Sodium Chloride 1,000 mls @ 75 mls/hr 10/06/16 20:15 10/12/16 06:49 D5-1/2ns - IV 75 mls/hr ASDIR ELROY Administration Ondansetron HCl 4 mg 10/05/16 14:41 10/09/16 19:44 Zofran Injection IVPB 4 mg Q4H PRN Administration NAUSEA Ondansetron HCl 4 mg 10/10/16 00:12 Zofran Injection IVPB Q6H PRN NAUSEA Objective: Vital Signs Period Temp Pulse Resp BP Sys/Montiel Pulse Ox Last 24 Hr 97.5 F-98.8 F 89-107 16-20 123-128/75-86 99-99 Physical Exam: General: NAD, sleeping but arousable to loud stimuli Lungs: CTA bilaterally Heart: RRR, S1S2 Abd: Soft, non-tender, non-distended. Normoactive bowel sounds Ext: Warm, well-perfused. 2+ DP/PT bilaterally Neuro: Moves all extremities spontaneously. Unable to cooperate for neuro exam CBCD WBC 5.0 K/mm3 (4.0-10.0) 10/10/16 06:15 RBC 4.54 M/mm3 (3.60-5.2) 10/10/16 06:15 Hgb 9.2 GM/dL (10.7-15.3) L 10/10/16 06:15 Hct 29.0 % (32.4-45.2) L 10/10/16 06:15 MCV 63.9 fl (80-96) L 10/10/16 06:15 MCHC 31.6 g/dl (32.0-36.0) L 10/10/16 06:15 RDW 19.9 % (11.6-15.6) H 10/10/16 06:15 Plt Count 381 K/MM3 (134-434) 10/10/16 06:15 MPV 9.1 fl (7.5-11.1) 10/10/16 06:15 CMP Sodium 138 mmol/L (136-145) 10/10/16 06:15 Potassium 3.8 mmol/L (3.5-5.1) 10/10/16 06:15 Chloride 102 mmol/L (98-107) 10/10/16 06:15 Carbon Dioxide 25 mmol/L (21-32) 10/10/16 06:15 Anion Gap 11 (8-16) 10/10/16 06:15 BUN 6 mg/dL (7-18) L D 10/10/16 06:15 Creatinine 0.6 mg/dL (0.55-1.02) 10/10/16 06:15 Creat Clearance w eGFR > 60 (>60) 10/10/16 06:15 Random Glucose 72 mg/dL (74-106) L 10/10/16 06:15 Calcium 9.4 mg/dL (8.5-10.1) 10/10/16 06:15 Total Bilirubin 0.3 mg/dL (0.2-1.0) D 10/10/16 06:15 AST 15 U/L (15-37) 10/10/16 06:15 ALT 15 U/L (12-78) 10/10/16 06:15 Alkaline Phosphatase 49 U/L (45-117) 10/10/16 06:15 Total Protein 6.9 g/dl (6.4-8.2) 10/10/16 06:15 Albumin 3.4 g/dl (3.4-5.0) 10/10/16 06:15 CARDIAC ENZYMES Creatine Kinase 69 IU/L (26-192) 10/04/16 19:06 Troponin I < 0.02 ng/ml (0.00-0.05) 10/04/16 19:06 Laboratory Tests 10/04/16 10/10/16 18:13 06:15 RPR Titer Nonreactive HIV 1&2 Antibody Screen Negative HIV P24 Antigen Negative Microbiology 10/09/16 11:30 Cerebral Spinal Fluid - Lumbar Puncture Gram Stain - Final 10/09/16 11:30 Cerebral Spinal Fluid - Lumbar Puncture CSF Culture - Final NO GROWTH AFTER 48 HOURS INCUBATION 10/04/16 22:00 Urine - Urine - Catheterized Urine Culture - Final NO GROWTH OBTAINED Assessment: This is a 36 year old female with no significant PMHx who presented to the ED with lethargy Plan: 1) Neuro: Altered mental status - No clear etiology - Patient incontinent - Patient remains lethargic but is arousable to loud verbal stimuli. Is unable to hold a conversation and will answer with one word and then fall back to sleep - Head CT no CT evidence of acute intracranial pathology - Brain MRI without contrast supratentorial changes possible consistent with metabolic encephalopathy - Grzegorz MRI with contrast shows no enhancement - LP performed, cultures with no growth to date - Viral PCRs pending - Physical therapy - Reconsult psychiatry - Appreciate neuro consult 2) GI: Vomiting - Resolved - Patient tolerating diet, she will only eat meals if someone feeds her 3) F/E/N: - Monitor electrolytes - Regular diet 4) Prophylaxis: - PT - Heparin 5,000u sq tid 5) Dispo: - Will likely need adjunct faculty for medical terminology placement CODE STATUS: FULL CODE Visit type - Emergency Visit Emergency Visit: Yes ED Registration Date: 10/06/16 Care time: The patient presented to the Emergency Department on the above date and was hospitalized for further evaluation of their emergent condition. - New Patient This patient is new to me today: Yes Date on this admission: 10/12/16 - Critical Care Critical Care patient: No
[2016-10-13 00:05] LABS: HSV 2 DNA. Negative (Negative)
[2016-10-13] MEDS: HEPARIN NA (PORCINE) 5,000 UNITS/ML 1ML VIAL SQ SCH ×3 (06:47→21:28)
[2016-10-13] MEDS: DEXTROSE 5%-0.45% SALINE 1,000 ML IV SCH ×2 (10:58→21:29)
--- NOTE | 2016-10-13 12:40 | PN ---
Progress Note, Physician - Current Medication List Current Medications: Active Medications Acetaminophen (Tylenol -) 650 mg PO Q4H PRN PRN Reason: FEVER OR PAIN Heparin Sodium (Porcine) (Heparin -) 5,000 unit SQ TID [facility] Last Admin: 10/13/16 06:47 Dose: 5,000 unit Dextrose/Sodium Chloride (D5-1/2ns -) 1,000 mls @ 75 mls/hr IV ASDIR [facility] Last Admin: 10/13/16 10:58 Dose: 75 mls/hr Ondansetron HCl (Zofran Injection) 4 mg IVPB Q4H PRN PRN Reason: NAUSEA Last Admin: 10/09/16 19:44 Dose: 4 mg Ondansetron HCl (Zofran Injection) 4 mg IVPB Q6H PRN PRN Reason: NAUSEA - Objective Vital Signs: Vital Signs Temperature 98.2 F 10/13/16 08:24 Pulse Rate 91 H 10/13/16 08:24 Respiratory Rate 16 10/13/16 09:00 Blood Pressure 122/71 10/13/16 08:24 O2 Sat by Pulse Oximetry (%) 99 10/13/16 09:00 Cardiovascular: Yes: Regular Rate and Rhythm Respiratory: Yes: Regular Gastrointestinal: Yes: Normal Bowel Sounds, Soft Labs: CBC, BMP 10/10/16 06:15 10/10/16 06:15 INR, PTT INR 1.15 (0.82-1.09) H 10/09/16 11:44 Problem List - Problems (1) Altered mental status Assessment/Plan: Urine drug screen that was positive for cocaine. MRI brain without contrast completed showed supratentorial changes possibly consistent with metabolic encephalopathy. MRI with contrast shows no enhancement , making demyelinating disease less likely EEG shows no seizure, slowing Appreciate psych input given it appears there is some functional overlay to her exam. No obvious lab abnormalities (+cocaine), RPR and HIV - LP- wbc 2, rbc 15, glu 59, protein 22 Recommend No obvious source for symptoms despite extensive workup, patients exam appears to be stable Viral PCRs pending, oligoclonal bands pending Physical therapy Code(s): R41.82 - ALTERED MENTAL STATUS, UNSPECIFIED
[2016-10-14] MEDS: HEPARIN NA (PORCINE) 5,000 UNITS/ML 1ML VIAL SQ SCH ×3 (06:00→21:43)
[2016-10-14] MEDS ORDERED: PT OWN MED DRAWER 7, Y5N ONE (10:28)
--- NOTE | 2016-10-14 13:16 | PN ---
Progress Note, Physician Chief Complaint: in bed lethargic does open eyes when stimulated then fall asleep can moves her legs History of Present Illness: no fever - Current Medication List Current Medications: Active Medications Acetaminophen (Tylenol -) 650 mg PO Q4H PRN PRN Reason: FEVER OR PAIN Heparin Sodium (Porcine) (Heparin -) 5,000 unit SQ TID [facility] Last Admin: 10/14/16 06:00 Dose: 5,000 unit Dextrose/Sodium Chloride (D5-1/2ns -) 1,000 mls @ 75 mls/hr IV ASDIR [facility] Last Admin: 10/13/16 21:29 Dose: Not Given Ondansetron HCl (Zofran Injection) 4 mg IVPB Q4H PRN PRN Reason: NAUSEA Last Admin: 10/09/16 19:44 Dose: 4 mg Ondansetron HCl (Zofran Injection) 4 mg IVPB Q6H PRN PRN Reason: NAUSEA - Objective Vital Signs: Vital Signs Temperature 98.1 F 10/14/16 09:00 Pulse Rate 103 H 10/14/16 09:00 Respiratory Rate 18 10/14/16 09:00 Blood Pressure 114/73 10/14/16 09:00 O2 Sat by Pulse Oximetry (%) 99 10/13/16 21:00 Constitutional: Yes: Calm Neck: Yes: Trachea Midline Cardiovascular: Yes: Regular Rate and Rhythm, S1, S2 Respiratory: Yes: CTA Bilaterally Gastrointestinal: Yes: Normal Bowel Sounds, Soft Edema: No Neurological: Yes: Other (lethargic) Labs: CBC, BMP 10/10/16 06:15 10/10/16 06:15 INR, PTT INR 1.15 (0.82-1.09) H 10/09/16 11:44 Problem List - Problems (1) Altered mental status Assessment/Plan: lumbar puncture done MRI noted neuro saw patient eeg shows mild diffuse slowing PT will try to see patient but she is very lethargic matthew need rehab dvt ppx Code(s): R41.82 - ALTERED MENTAL STATUS, UNSPECIFIED
[2016-10-14] MEDS: DEXTROSE 5%-0.45% SALINE 1,000 ML IV SCH ×2 (14:02→21:53)
--- NOTE | 2016-10-14 15:11 | PN ---
Progress Note, Physician Chief Complaint: lethargy History of Present Illness: 36-year-old woman with pmh. of confusion, lethargy episode five years ago admitted for lethargy, generalized weakness. Her urine drug screen was positive for cocaine. The work up MRI Brain, LP CSF are negative for stroke, seizures , infection. As per mother, her daughter had a similar episode at an outside hospital for which she had extensive workup including MRI brain, LP, all which were unremarkable. - Current Medication List Current Medications: Active Medications Acetaminophen (Tylenol -) 650 mg PO Q4H PRN PRN Reason: FEVER OR PAIN Heparin Sodium (Porcine) (Heparin -) 5,000 unit SQ TID COUNTS [facility]CLUDE 234 BEDS AT [facility] Last Admin: 10/14/16 14:02 Dose: 5,000 unit Dextrose/Sodium Chloride (D5-1/2ns -) 1,000 mls @ 75 mls/hr IV ASDIR COUNTS INCLUDE 234 BEDS AT THE [facility] Last Admin: 10/14/16 14:02 Dose: 75 mls/hr Ondansetron HCl (Zofran Injection) 4 mg IVPB Q4H PRN PRN Reason: NAUSEA Last Admin: 10/09/16 19:44 Dose: 4 mg Ondansetron HCl (Zofran Injection) 4 mg IVPB Q6H PRN PRN Reason: NAUSEA - Objective Vital Signs: Vital Signs Temperature 98.1 F 10/14/16 09:00 Pulse Rate 103 H 10/14/16 09:00 Respiratory Rate 18 10/14/16 09:00 Blood Pressure 114/73 10/14/16 09:00 O2 Sat by Pulse Oximetry (%) 99 10/13/16 21:00 Constitutional: Yes: Well Nourished, No Distress, Calm Eyes: Yes: Conjunctiva Clear, EOM Intact HENT: Yes: Atraumatic, Normocephalic Neck: Yes: Supple, Trachea Midline Cardiovascular: Yes: Regular Rate and Rhythm, S1, S2 Respiratory: Yes: WNL, Regular, CTA Bilaterally Gastrointestinal: Yes: Normal Bowel Sounds, Soft Breast(s): Yes: WNL Musculoskeletal: Yes: WNL Extremities: Yes: WNL Edema: No Peripheral Pulses WNL: Yes Peripheral Pulses: Left Radial: 1+, Right Radial: 1+ Neurological: Yes: Alert, Cran Nerves II-XII Intact, Weakness, Other (laying down in bed, follows slowly intermittent commands. She denies any pain) ...Motor Strength: WNL Labs: CBC, BMP 10/10/16 06:15 10/10/16 06:15 INR, PTT INR 1.15 (0.82-1.09) H 10/09/16 11:44 - ....Imaging MRI: Report Reviewed, Image Reviewed Other: Report Reviewed Problem List - Problems (1) Altered mental status Code(s): R41.82 - ALTERED MENTAL STATUS, UNSPECIFIED (2) Depressed affect Code(s): R45.89 - OTHER SYMPTOMS AND SIGNS INVOLVING EMOTIONAL STATE (3) Mood and affect disturbance Code(s): F39 - UNSPECIFIED MOOD [AFFECTIVE] DISORDER Assessment/Plan 36-year-old woman with pmh. of another lethargy episode five years ago was admitted for lethargy, generalized weakness. Her urine drug screen was positive for cocaine. The work up MRI Brain, LP CSF are negative for stroke, seizures , infection. As per mother, her daughter had a similar episode at an outside hospital for which she had extensive workup including MRI brain, LP, all which were unremarkable. Impression: mood disorder, major depression versus catatonia, bipolar disorder. Plan: - the MRI brain is negative for acute pathology, EEG is negative for seizures, CSF is negative for infection. - the neurological exam is nonfocal, the patient follows intermittent commands. - consider psychiatry treatment for major depressive episode versus bipolar disorder. - neurology is signing off. Thank you for this consult.
[2016-10-15 00:06] LABS: EBVAB EARLY D AG IGG <5.0 U/mL (0.0-10.9); TOXOPLASMA IGG,CSF < 3.0 IU/mL (.)
[2016-10-15] MEDS: DEXTROSE 5%-0.45% SALINE 1,000 ML IV SCH (03:53)
[2016-10-15] MEDS: HEPARIN NA (PORCINE) 5,000 UNITS/ML 1ML VIAL SQ SCH ×2 (05:57→14:06)
--- NOTE | 2016-10-15 11:11 | DS ---
Physical Examination Vital Signs: Vital Signs Temperature 97.4 F L 10/15/16 09:00 Pulse Rate 97 H 10/15/16 09:00 Respiratory Rate 18 10/15/16 05:00 Blood Pressure 131/82 10/15/16 09:00 O2 Sat by Pulse Oximetry (%) 99 10/14/16 21:00 per nurse has good appetite did tell her name to nurse Constitutional: Yes: Calm, Thin Cardiovascular: Yes: Regular Rate and Rhythm, S1, S2 Respiratory: Yes: CTA Bilaterally Gastrointestinal: Yes: Normal Bowel Sounds, Soft Edema: No Neurological: Yes: Other (sleeping in bed but arousable to answer questions per nurse she did tell her name) Labs: CBC, BMP 10/10/16 06:15 10/10/16 06:15 Discharge Summary Reason For Visit: WEAKNESS Current Active Problems Altered mental status (Acute) Ataxia (Acute) Depressed affect (Acute) Dizziness (Acute) Mood and affect disturbance (Acute) Hospital Course: PCP: Brennan Patel CHIEF COMPLAINT: Altered mental status HISTORY OF PRESENT ILLNESS: This is a 36-year-old woman who was brought in to the ER by family yesterday because of lethargy. She had been complaining of feeling weak. Work-up, including head CT, was unremarkable except for urine drug screen that was positive for cocaine. She is currently very sleepy. She is slow to answer questions. She complains of feeling dizzy and weak. She denies pain, fever, chills, falls, headache, abdominal pain, nausea, cough, shortness of breath, chest pain, diarrhea, constipation, weight change, dysuria, hematuria , leg edema. She denies drug use, but earlier admitted to using cocaine 2 days ago. PAST MEDICAL HISTORY: Denies PAST SURGICAL HISTORY: Denies Allergies No Known Allergies Allergy (Verified 10/04/16 17:37)\ unclear eitolgy for symptoms MRI ,EEG done,LP all negatvie seen by [facility] no meds needed will need PT and placement Microbiology 10/09/16 11:30 Cerebral Spinal Fluid - Lumbar Puncture Gram Stain - Final 10/09/16 11:30 Cerebral Spinal Fluid - Lumbar Puncture CSF Culture - Final NO GROWTH AFTER 48 HOURS INCUBATION 10/04/16 22:00 Urine - Urine - Catheterized Urine Culture - Final NO GROWTH OBTAINED - Instructions Referrals: Brennan Patel MD [Primary Care Provider] - Disposition: LONG TERM FACILITY - Home Medications Comprehensive Discharge Medication List: Ambulatory Orders NK [No Known Home Medication] 08/17/14
[2016-10-15 14:41] VITALS: BP 126/80; PULSE 104; TEMP 98.3
--- NOTE | 2016-10-15 16:24 | CON.PSY ---
Psychiatry Consult Chief Complaint: Denies any problems. History of substance abuse, lethargic. - Previous Psychiatric Treatment Outpatient: None Inpatient: None - Previous Substance Abuse Treatment Outpatient: None Inpatient: None - Reason for Previous Treatment Reason for Previous Treatment: Cocaine - Family History Family History: Unremarkable - Current Medications Current Medications: Active Medications Acetaminophen (Tylenol -) 650 mg PO Q4H PRN PRN Reason: FEVER OR PAIN Heparin Sodium (Porcine) (Heparin -) 5,000 unit SQ TID [facility] Last Admin: 10/15/16 14:06 Dose: 5,000 unit Dextrose/Sodium Chloride (D5-1/2ns -) 1,000 mls @ 75 mls/hr IV ASDIR ELROY Last Admin: 10/15/16 03:53 Dose: 75 mls/hr Ondansetron HCl (Zofran Injection) 4 mg IVPB Q4H PRN PRN Reason: NAUSEA Last Admin: 10/09/16 19:44 Dose: 4 mg Ondansetron HCl (Zofran Injection) 4 mg IVPB Q6H PRN PRN Reason: NAUSEA - Allergies Allergies: Allergies Allergy/AdvReac Type Severity Reaction Status Date / Time No Known Allergies Allergy Verified 10/04/16 17:37 - Current Living Status Usual Living Arrangement: Alone - Current Mental Status Evaluation Appearance: Well Groomed Attitude: Guarded - Affect Affect: Constrictive Appropriateness: Appropriate to Content - Mood Mood: Irritable - Speech/Language Expressive: Coherent Receptive: Age Appropriate Comprehension of Spoken Words - Psychomotor Activity Psychomotor Activity: Slowed - Thought Content Hallucinations: Absent Delusions: Absent - Self Perception Self Perception: No Impairment - Cognition Attention: Alert Orientation: Time Memory, Short Term: 2/3 Memory, Remote with Promptin/3 - Concentration Serial Sevens Intact: No Simple Calculations Intact: No - Abstraction Proverb Interpretation: Intact Judgement: Minimally Impaired - Insight Insight: Intact - Impulse Control Impulse Control: Minimally Impaired - Suicidal Ideation Suicidal Ideation: No - Homicidal Ideation Homicidal Ideation: No Assessment/Plan Do not recemmend any any psych meds at this time. will start Zoloft 25mg po od.
[2016-10-16 00:11] LABS: LYME IGG WB INTERP. Negative (.); P18 AB Absent (.); P23 AB Absent (.); P28 AB Absent (.); P30 AB Absent (.); P39 AB Absent (.); P41 AB Absent (.); P45 AB Absent (.); P58 AB Absent (.); P66 AB Absent (.); P93 AB Absent (.)
[2016-10-16] MEDS ORDERED: SERTRALINE HCL 25 MG TABLET (FP) PO SCH (10:00)
[2016-10-17 00:08] LABS: MYELIN BASIC PROTEIN,CSF 44.5 ng/mL (0.0-1.2)
[2016-10-24 06:06] LABS: HSV 1/2 CSF 0.49 IV (<=0.89); HSV 1/2 IGG CSF 0.34 IV (<=0.89); MUMPS AB IGG CSF < 5.0 AU/mL (<=10.9); MUMPS AB IGM CSF 0.07 IV (<=0.79); VARICELLA-ZOSTER IGM CSF 0.01 ISR (<=0.90); VARICELLA-ZOSTER IgG CSF < 10 IV (.)
== END 2016-10-15 17:06 | DRG 885 ==
LOC: JER 16:56 → JERBED 10-05 14:46 → UNDOADMOB 10-05 14:46 → JERBED 10-06 02:14 → J8W 10-06 02:14 → JERBED 10-06 20:04 → OBSVTOIN 10-06 20:04
PROVIDERS: ADMIT Internal Medicine; ATTEND Internal Medicine
PROC: 4A00X4Z Measurement of Central Nervous Electrical Activity, External Approach (ICD-10-PCS; 2016-10-07)
PROC: 009U3ZX Drainage of Spinal Canal, Percutaneous Approach, Diagnostic (ICD-10-PCS; principal; 2016-10-10)
DX: F39 Unspecified mood [affective] disorder (principal); G93.41 Metabolic encephalopathy; F32.9 Major depressive disorder, single episode, unspecified; R26.0 Ataxic gait; F14.920 Cocaine use, unspecified with intoxication, uncomplicated; R41.82 Altered mental status, unspecified
CPT/HCPCS: 36415; 62272; 70450-TC; 70551-TC; 70553-TC; 71010-TC; 74177-TC; 76098-TC; 80048; 80053; 80307; 81003; 82085; 82140; 82550; 82607; 82784; 82945; 82977; 83036; 83873; 83916; 84157; 84443; 84484; 84703; 85025; 85027; 85610; 85651; 86592; 86593; 86617; 86644; 86663; 86664; 86665; 86694; 86735; 86765; 86777; 86787; 86788; 86789; 87070; 87086; 87205; 87389; 87529; 87798; 87899; 89050; 93005; 93010; 95816; 97116-GP; 97162-PG; 99285-25; C1887; J1644